=== PATIENT | female | born 1955 | race Caucasian/White ===

== ENCOUNTER → 2017-08-18 | Outpatient (CLI) | payer MEDICARE, OTHER ==
[~2017-08-18] MED LIST: CARDIZEM CD120 MG PO; CARDIZEM CD180 MG PO; CYMBALTA60 MG PO; DOXYCYCLINE HY100 M4 PO; ELIQUIS5 MG PO; FUROSEMIDE 40 M40 M1 PO; GLEEVEC400 MG PO; K-TAB ER20 MEQ PO; LAMICTAL100 MG PO; LEXAPRO20 MG PO; LIORESAL 10 MG10 MG PO; LITHIUM CARBON600 MG PO; LOPRESSOR25 PO; LOPRESSOR50 PO; LOVAZA1000 MG PO; LYRICA 75 MG CA75 MG PO; LYRICA200 MG PO; MELATONIN5 M1 PO; METFORMIN HCL500 MG PO; NABUMETONE 750750 M1 PO; NEXIUM40 M2 PO; NORCO 5-325 TA1 EACH PO; ONDANSETRON HCL4 M2 PO; PRILOSEC20 MG PO; REQUIP4 MG PO; SEROQUEL 25 MG25 M1 PO; TAMBOCOR 100 M100 M1 PO; VITAMIN B-12100 MC1 IM; VITAMIN D2000 UNIT PO; XANAX 0.5 MG0.5 MG PO; ZANAFLEX4 MG PO
--- NOTE | 2017-08-20 09:59 | PAINCON ---
[facility] [address] [place] [address] PAIN MANAGEMENT CONSULTATION Name: HESHAM NELSON Room: [facility].#: [id number] Admission: 08/18/17 Attend Phys: Aleta Prieto Discharge: Date of : 59 Report #: [id number] THIS REPORT FOR: //name// CC: Norman Robertson DATE OF SERVICE: 08/18/2017 The patient is a 62-year-old female seen last February for ongoing lumbar radicular pain, component of lumbosacral spondylosis. The patient returns to the Pain Clinic today, she notes low back pain remains problematic, radiating to the buttock and right leg. She has been off Eliquis since Wednesday. She is requesting a repeat epidural injection. She had had epidural injections in 2013 (3), 2015 (2). She had SI joint injection at last visit in February. She was on Eliquis and had pain that appeared to be SI mediated. Today, she notes the pain is exacerbated with standing, walking, and bending. She denies myelopathic symptoms. PHYSICAL EXAMINATION: Shows 5 feet 7 inches, approximately 280-pound female, BMI is 44 kg/m2, blood pressure 193/83, pulse 96, respirations 16. Rises from chair using armrest. Flexion is limited to 60 degrees. Has an antalgic gait, endomorphic build. Right hip flexion and lower extremity extension strength is diminished. Modestly positive straight leg raise on the right. Diffuse tenderness across the low back. No discrete trigger points are noted. DIAGNOSTIC STUDIES: There are no recent diagnostic studies available to evaluate at this time. ASSESSMENT: Symptomatic lumbar radiculopathy with clinical exam and history. RECOMMENDATIONS: 1. Epidural injection under fluoroscopy today, right of midline L4-L5. 2. Renew tizanidine 4 mg t.i.d. for spasm. 3. Follow up in 3 weeks for reevaluation, resume Eliquis tonight, stop Eliquis 3 days before next office visit if radicular symptoms continue. If she has good relief, we will have her cancel the appointment. ASSESSMENT: Symptomatic lumbar radiculopathy with clinical exam and history. PROCEDURE: Lumbar epidural injection under fluoroscopy. PROCEDURE NOTE: After both written and informed consent to include risk of spinal cord damage, increased pain, weakness and dural puncture, the patient was taken to the fluoroscopy suite, placed in the prone position. After sterile prep and drape, a skin wheal with lidocaine was raised. A 4.5 inch, 20[place] [id number] PAIN MANAGEMENT CONSULTATION Name: HESHAM NELSON [id number] Admission: 08/18/17 Attend Phys: Aleta Prieto Discharge: Date of : 59 Report #: [id number] epidural Tuohy needle was inserted in the midline at L4-L5 with good loss to resistance. Negative aspiration for cerebrospinal fluid or blood was noted. Then 1 mL of Omnipaque under biplanar fluoroscopy showed good spread within the epidural space. This was followed with 60 mg of triamcinolone plus 1 mL of 1.5% preservative-free Xylocaine, 0.5 mL Xylocaine was then injected to flush the needle; it was removed. The patient was monitored for an appropriate period of time and discharged in good and stable condition. <ELECTRONICALLY SIGNED> By: Yemi Robertson DO 08/20/17 0959 [id number] Robertson DO /nt
== END | disposition home or self-care (01) ==
LOC: M.PC 07-28 01:29
DX: M54.16 Radiculopathy, lumbar region (principal); G89.29 Other chronic pain; Z88.0 Allergy status to penicillin; Z88.2 Allergy status to sulfonamides; Z88.6 Allergy status to analgesic agent; Z79.899 Other long term (current) drug therapy

== ENCOUNTER → 2019-05-18 | Outpatient (CLI) | payer MEDICARE, OTHER ==
[~2019-05-18] MED LIST changes: -LYRICA 75 MG CA75 MG PO; +ZOFRAN4 MG PO
--- NOTE | 2019-05-31 09:09 | PAINCON ---
[address] [address] PAIN MANAGEMENT CONSULTATION Name: OMARHESHAM Lissett [id number] Admission: 05/18/19 Attend Phys: Vanessa Kearney MD Discharge: Date of : 59 Report #: [id number] THIS REPORT FOR: //name// CC: Karan Kearney DATE OF SERVICE: 05/18/2019 CHIEF COMPLAINT: Low back pain down into the legs. HISTORY: The patient is a 63-year-old female who has been seen in the pain clinic in the past by Dr. Yemi Robertson. This is my first visit with the patient. She has pain, which radiates down in the lower portion of her back and down into her legs. She has undergone epidural steroid injections in the past and gleaned benefits from those. She has returned today with the hopes of undergoing an epidural steroid injection to help decrease the pain and discomfort she is experiencing. She has been using Eliquis. She has been off her Eliquis for 3 days. Has pain in the lower portion of her back, which radiates down the lower portion of her back as well as down into her buttocks. She is also having pain and discomfort in her shoulder. She has had a partial shoulder replacement in 2006. Has pain in her knees. She has been followed by the [facility]. The patient may consider knee replacement in the future. She has been on medications for chemotherapy. 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 She has a history of fibromyalgia, diagnosed 2006. She has had epidural steroid injections in the past in 2011, which were helpful. She has been on disability since 2010. She has had gastric carcinoma. She has been involved in a class action regarding vaginal mesh utilization. CURRENT MEDICATIONS: Eliquis 5 mg b.i.d., vitamin D3 2000 units daily, doxycycline 100 mg b.i.d., Cymbalta 90 mg daily, Gleevec 400 mg at bedtime, Lamictal 100 mg, lithium carbonate 600 mg, melatonin 5 mg, 20 mg at bedtime, Lopressor 25 mg, Lyrica 75 mg, 200 daily, Seroquel 25 mg 2 tablets at bedtime, Requip 4 mg, GERD medication, and Zofran. ALLERGIES: PENICILLIN, SULFA, MORPHINE, ERYTHROMYCIN. PAST MEDICAL HISTORY: Atrial fibrillation in 2010, diabetes, non-insulin dependent, anemia, hypertension, emotional problems, depression, stomach problems, acid reflux, stomach cancer metastasized to the liver in 2010, liver laser ablation of mets chemotherapy. PAST SURGICAL HISTORY: Removal of stent in esophagus 2010, cancer surgery and radiofrequency ablation of liver 2008, abdominal exploration 2003, total hysterectomy 04/2004, loosening of tie up of the urethra 1991, endometriosis 1988, right [place] [address] PAIN MANAGEMENT CONSULTATION Name: HESHAM NELSON [facility] [id number] Admission: 05/18/19 Attend Phys: Vanessa Kearney MD Discharge: Date of : 59 Report #: [id number] SOCIAL HISTORY: The patient is a homemaker. REVIEW OF SYSTEMS: Weight changes, fever, night sweats, headaches, wears glasses, hearing loss, heart trouble, chest pain, palpitations, shortness of breath, swelling of feet, loss of appetite, nausea, constipation, abdominal pain, joint pain, joint stiffness, weakness of muscles, muscle pain with cramps, back pain, difficulty walking, changes in nails and hair, memory, confusion, numbness and tingling, sensation, neuropathy in the feet. LABORATORY DATA: No new laboratory values are available at the time of our interview. PAIN CLINIC ASSESSMENT/PQRS: 1. History of osteoarthritis. The patient has some arthritic changes in the lower portion of her back. She is not being treated for rheumatoid arthritis. 2. Height 5 feet 7 inches, weight 300 pounds, BMI is 47. 3. Vital signs: Blood pressure 123/86, heart rate 81, respiratory rate 16, room air saturation 95%, temperature is 97.5. 4. Pain intensity /10. 5. Fall history: The patient has not fallen in the last 3 months. 6. Blood thinner. The patient is on a blood thinning medication. She is using Eliquis. 7. Hypertension. The patient is being treated for hypertension. 8. Opioids greater than 6 weeks. The patient is not on an opioid medication on a regular basis. 9. Risk assessment tool, low for opioid use. 10. Functional assessment moderate for opioid use. 11. Functional assessment tool, low. 12. Recreational drug use. The patient denies. 13. Tobacco: The patient denies. 14. Alcohol. The patient denies frequent use of alcoholic beverages. PHYSICAL EXAMINATION: GENERAL: The patient is a well-developed, obese white female, appears her stated age. She is alert and oriented x 3. Her affect is appropriate. Speech is fluent. HEENT: Normocephalic, atraumatic. Extraocular eye muscles intact. Sclerae nonicteric. Mucous membranes are moist. NECK: Without adenopathy or JVD. HEART: Regular rate. ABDOMEN: Protuberant. Bowel sounds present. MUSCULOSKELETAL: Upper extremity muscle strength judged to be 5-/5 for the major muscle groups in the upper extremity. The patient has pain and discomfort in lower portion of the back and notes increased pain with walking, sitting and standing. There is pain in the L4-L5 dermatomal distribution with pain that radiates down into the left buttocks [place] [address] PAIN MANAGEMENT CONSULTATION Name: HESHAM NELSON Lissett [facility] [id number] Admission: 05/18/19 Attend Phys: Vanessa Kearney MD Discharge: Date of : 59 Report #: [id number] IMPRESSION: Symptomatic lumbar radiculopathy, atrial fibrillation in 2010, diabetes, non-insulin dependent, anemia, hypertension, emotional problems, depression, stomach problems, acid reflux, stomach cancer metastasized to the liver, liver laser ablation of mets chemotherapy. RECOMMENDATIONS: We discussed treatment options with the patient. Risks and benefits of an epidural steroid injection were again discussed. Possible complications of the procedure, which could include but are not limited to infection, worsening of pain, no improvement in pain, bleeding, nerve damage, spinal headache were discussed and the patient elects to proceed. The patient has stopped taking her Eliquis. She would like to proceed with an epidural steroid injection. We again discussed the risk and benefits. A model was used to indicate the area of probable pathology. A model was used to indicate the anatomy of the low back area. Questions were sought and answered. PROCEDURE: The patient presents taken to the epidural area where she was then assisted in getting on the examination table. Her back was sterilely prepped with a Betadine solution. A 0.25% bupivacaine was infiltrated at the L4-L5 area. Aspiration was negative. A 17-gauge Tuohy using a midline approach at the L4-L5 area was then used to gain access to the epidural space. There was no CSF, heme or paresthesia. A total of 80 mg Depo-Medrol, 40 mg triamcinolone and 2 mL of 0.25% bupivacaine was injected. The patient tolerated the procedure well. She will follow her blood sugars. She will call us if she has any concerns. We would like to thank you for letting us participate in her care. We hope she continues to improve. <ELECTRONICALLY SIGNED> By: Vanessa Kearney MD 05/31/19 0909 [id number]. Nik Kearney MD /nt
== END | disposition home or self-care (01) ==
LOC: M.PC 05-09 09:30
DX: M54.16 Radiculopathy, lumbar region (principal); G89.29 Other chronic pain; I10 Essential (primary) hypertension; E11.9 Type 2 diabetes mellitus without complications; I48.91 Unspecified atrial fibrillation; D64.9 Anemia, unspecified; F32.9 Major depressive disorder, single episode, unspecified; K21.9 Gastro-esophageal reflux disease without esophagitis; Z85.028 Personal history of other malignant neoplasm of stomach; Z85.05 Personal history of malignant neoplasm of liver; Z79.01 Long term (current) use of anticoagulants; Z98.890 Other specified postprocedural states; Z79.899 Other long term (current) drug therapy; Z88.0 Allergy status to penicillin; Z88.2 Allergy status to sulfonamides

== ENCOUNTER → 2020-03-07 | Outpatient (CLI) | payer MEDICARE, OTHER ==
[~2020-03-07] MED LIST changes: +METFORMIN HCL500 M3 PO
--- NOTE | 2020-03-14 23:57 | PAINCON ---
[facility] [address] [place] [address] PAIN MANAGEMENT CONSULTATION Name: HESHAM NELSON Room: [facility]#: [id number] Admission: 03/07/20 Attend Phys: Vanessa Kearney MD Discharge: Date of : 59 Report #: [id number] THIS REPORT FOR: //name// cc: Mauri Murillo MD, Usman MD ~ THIS REPORT FOR: //name// CC: Karan Murillo DATE OF SERVICE: 03/07/2020 CHIEF COMPLAINT: Right shoulder, head, knee and back pain. HISTORY: She has noticed increased pain and discomfort with activities of daily living such as folding and doing laundry. She feels that there is some increased tension in the muscles. Notes that carrying heavy items can be problematic. She has had adjustments in the past. Has pain in the right shoulder blade. Feels that there is a trigger point in the right shoulder area. She has noticed worsening of pain and muscle spasms since October. Today, she rates her pain as a 2. She feels that the tizanidine medication is helpful. Notes that walking, sitting, standing, climbing stairs can be problematic. She does use a TENS unit. ALLERGIES: PENICILLIN, SULFA, MORPHINE, ERYTHROMYCIN. CURRENT MEDICATIONS: Eliquis 5 mg b.i.d., vitamin D3 2000 units daily, doxycycline 100 mg b.i.d., Cymbalta 90 mg daily, Gleevec 400 mg at bedtime, Lamictal 100 mg, lithium carbonate 600 mg, melatonin at bedtime, Lopressor 25 mg, Lyrica 75 mg, 200 mg daily total; Seroquel 25 mg at bedtime, Requip 4 mg, GERD medication, and Zofran. PAIN CLINIC ASSESSMENT AND PQRS: 1. The patient has a history of osteoarthritis with changes in her lower back. Has some problems with her knees. The patient is not being treated for rheumatoid arthritis. 2. Height 5 feet 7 inches, weight 279 pounds, BMI is 44. 3. Vital Signs: Blood pressure is 114/78, heart rate 73, respiratory rate 16, room air saturation is 97%. 4. Pain intensity, 2/10. 5. Temperature 97.2. 6. Fall history: The patient has not fallen in the last 3 months. 7. Blood thinner. The patient is on a blood thinning medication, Eliquis. 8. Hypertension. The patient is being treated for hypertension. 9. Opioids greater than 6 weeks. The patient receives [place] [address] PAIN MANAGEMENT CONSULTATION Name: NELSONHESHAM S Room: [facility]#: [id number] Admission: 03/07/20 Attend Phys: Vanessa Kearney MD Discharge: Date of : 59 Report #: [id number] primary. 10. Risk assessment tool, low for opioid use. 11. Functional assessment tool, reviewed. 12. Recreational drug use. The patient denies. 13. Tobacco: The patient denies. 14. Alcohol. The patient denies frequent use of alcoholic beverages. PHYSICAL EXAMINATION: GENERAL: The patient is a well-developed, well-nourished white female. She is obese. She is alert and oriented x 3. Her affect is appropriate. Speech is fluent. HEENT: Normocephalic, atraumatic. Extraocular eye muscles intact. Sclerae nonicteric. Mucous membranes are moist. NECK: Without adenopathy or JVD. HEART: Regular rate. ABDOMEN: Protuberant. Bowel sounds present. MUSCULOSKELETAL: Upper extremity muscle strength 5-/5 for the major muscle groups in the upper extremity. The patient has pain and discomfort in the right shoulder as well as in the posterior portion of her shoulder and shoulder blade area. Complains of knee pain as well as low back pain. IMPRESSION: 1. Myofascial pain, right low back area and right shoulder area. 2. History of atrial fibrillation since 2010. 3. Diabetes, non-insulin dependent. 4. Anemia. 5. Hypertension. 6. Emotional problems. 7. Depression. 8. Stomach problems. 9. Acid reflux. 10. Stomach cancer ____ with metastases to the liver. 11. Liver laser ablation with mets and chemotherapy. RECOMMENDATIONS: We discussed treatment options with the patient. At this juncture, she is having pain, which is quite problematic. Activities of daily living exacerbate her pain and discomfort. She is having pain in the area of the right rhomboid area. Palpation in the area of T9-T10 reproduce a significant component of her discomfort. We will proceed with a trigger point injection to the affected area. Risks and benefits of the procedure were discussed. Possible complications of the procedure, which could include but are not limited to infection, worsening pain, no improvement in pain, tension pneumothorax with need for placement of a chest tube were reviewed. The patient elects to proceed. PROCEDURE NOTE: The patient was taken to the procedure area. She was then [address] [address] PAIN MANAGEMENT CONSULTATION Name: HESHAM NELSON Room: [facility] Nghia#: [id number] Admission: 03/07/20 Attend Phys: Vanessa Kearney MD Discharge: Date of : 59 Report #: [id number] assisted in getting on the examination table. Her back was sterilely prepped with a chlorhexidine solution. A trigger point was noted in the right rhomboid area. A 10 mL of 0.5% bupivacaine and 80 mg of triamcinolone was injected. The patient tolerated the procedure well. A 25-gauge needle was used. There was no bleeding. There was no air with aspiration. The patient will follow up in the future as needed. The patient will continue with her medications of tizanidine and she will call us if she has any complications. She will monitor her blood sugar level. We would like to thank you for letting us participate in her care. We hope she continues to improve. <ELECTRONICALLY SIGNED> By: Vanessa Kearney MD 03/14/20 [id number] [id number]. Nik Kearney MD /nt
== END | disposition home or self-care (01) ==
LOC: M.PC 09:09
PROVIDERS: ATTEND Anesthesiology Pain Medicine
DX: M79.18 Myalgia, other site (principal); G89.29 Other chronic pain; I10 Essential (primary) hypertension; I48.91 Unspecified atrial fibrillation; E11.9 Type 2 diabetes mellitus without complications; D64.9 Anemia, unspecified; F32.9 Major depressive disorder, single episode, unspecified; K21.9 Gastro-esophageal reflux disease without esophagitis; Z98.890 Other specified postprocedural states; Z79.899 Other long term (current) drug therapy; Z79.01 Long term (current) use of anticoagulants; Z85.028 Personal history of other malignant neoplasm of stomach; Z85.05 Personal history of malignant neoplasm of liver; Z88.0 Allergy status to penicillin; Z88.2 Allergy status to sulfonamides; Z88.8 Allergy status to other drugs, medicaments and biological substances

== ENCOUNTER → 2020-08-29 | Outpatient (CLI) | payer MEDICARE, OTHER | LOC: M.PC 09:30 | PROVIDERS: ATTEND Anesthesiology Pain Medicine | DX: C16.9 Malignant neoplasm of stomach, unspecified (principal); C78.7 Secondary malignant neoplasm of liver and intrahepatic bile duct; M25.511 Pain in right shoulder; E11.9 Type 2 diabetes mellitus without complications; D64.9 Anemia, unspecified; I10 Essential (primary) hypertension; K21.9 Gastro-esophageal reflux disease without esophagitis; F32.9 Major depressive disorder, single episode, unspecified ==